=== PATIENT | male | born 1990 | race Caucasian/White ===

== ENCOUNTER 2019-04-30 17:57 | Emergency (ER) | payer BC ==
[~2019-04-30] VITALS: Ht 177.8 cm; Wt 47.6 kg
[2019-04-30 18:12] VITALS: BP 115/64
[2019-04-30] MEDS ORDERED: IBUPROFEN 400 MG TAB PO ONE (18:25)
[2019-04-30] MEDS ORDERED: ACETAMINOPHEN EXTRA STRENGTH 500 MG TAB PO ONE (18:25)
[2019-04-30] MEDS ORDERED: NACL 0.9% 1,000 ML IV ONE (18:30)
[2019-04-30] MEDS ORDERED: ACETAMINOPHEN EXTRA STRENGTH 500 MG TAB ONE (18:34)
[2019-04-30] MEDS ORDERED: IBUPROFEN 400 MG TAB ONE (18:34)
[2019-04-30] MEDS ORDERED: AMPICILLIN/SULBACTAM 3 GM in NACL 0.9% 100 ML IV ONE (20:40)
[2019-04-30] MEDS ORDERED: AMPICILLIN/SULBACTAM 3 GM VIAL ONE (21:01)
[2019-04-30 22:23] VITALS: BP 102/57
== END 2019-04-30 22:23 | disposition home or self-care (01) ==
LOC: MED 17:57
DX: J02.9 Acute pharyngitis, unspecified (principal); R11.0 Nausea
CPT/HCPCS: 86308; 87081; 96365; 99283; J0295; J7030

== ENCOUNTER 2019-10-19 18:25 | Inpatient (IN) | payer BC ==
[~2019-10-19] VITALS: Ht 177.8 cm; Wt 45.8 kg
[2019-10-19 18:47] VITALS: BP 113/68
--- NOTE | 2019-10-19 20:19 | NUR ---
PT AMBUALTED TO BED #6
--- NOTE | 2019-10-19 20:51 | NUR ---
28 Y/O MALE C/O ABD PAIN AND NAUSEA X 2 DAYS, WORSENING TODAY. PT STATES HE WAS ABLE TO EAT LUNCH, AND THEN SUDDEN SHARP 10/10 PAIN TO ABD. DENIES VOMITING/DIARRHEA. ABD SOFT, FLAT, NONTENDER TO TOUCH. BOWEL SOUNDS PRESENT. RR EVEN AND UNLABORED. PT POSITIONED IN BED FOR COMFORT. X 1 SIDE RAIL RAISED. VSS. MEDHX: DENIES ALLERGIES: NKA
--- NOTE | 2019-10-19 21:46 | NUR ---
DR HARE AT BEDSIDE EXAMINING PT.
--- NOTE | 2019-10-19 21:57 | NUR ---
LAB AT BEDSIDE
[2019-10-19 22:08] LABS: EOSINOPHILS # (AUTO) 0.1 K/uL (0-0.4); LYMPHOCYTES # (AUTO) 1.9 K/uL (2.0-11.5); MONOCYTES # (AUTO) 0.5 K/uL (0.8-1.0); NEUTROPHILS # (AUTO) 2.9 K/uL (1.8-7.7)
--- NOTE | 2019-10-19 22:08 | NUR ---
PT LAYING IN BED WITH EYES CLOSED, VISIBLE RISE AND FALL OF THE CHEST. RR EVEN AND UNLABORED. AROUSABLE NAME. VSS. WILL CONTINUE TO MONITOR.
[2019-10-19 22:13] LABS: BASOPHILS % (AUTO) 0.9 % (0.0-2.0); EOSINOPHILS % (AUTO) 2.6 % (0.0-4.0); HEMATOCRIT 38.9 % (36-52); HEMOGLOBIN 12.8 g/dL (12.0-18.0); LYMPHOCYTES % (AUTO) 34.3 % (20.5-51.1); MEAN CORPUSCULAR HEMOGLOBIN 29 pg (27-31); MEAN CORPUSCULAR HGB CONC 33 g/dL (33-37); MEAN CORPUSCULAR VOLUME 89.2 fL (80-94); MONOCYTES % (AUTO) 9.2 % (1.7-9.3); PLATELET COUNT (AUTO) 152 K/uL (140-450); RED BLOOD CELL COUNT(AUTO) 4.37 MIL/uL (4.20-6.10); RED CELL DISTRIBUTION WIDTH 13.4 % (11.6-13.7); WHITE BLOOD COUNT (AUTO) 5.5 K/uL (4.8-10.8)
[2019-10-19 22:32] LABS: ALBUMIN 3.6 g/dL (3.4-5.0); ANION GAP 14.2 (8-16); CARBON DIOXIDE 26.4 mmol/L (21-32); CREATININE 0.8 mg/dL (0.7-1.3); POTASSIUM 3.6 mmol/L (3.5-5.1); TOTAL BILIRUBIN 2.3 mg/dL (0.0-1.0)
--- NOTE | 2019-10-19 23:32 | NUR ---
PT TO CT VIA WHEELCHAIR.
--- NOTE | 2019-10-20 00:34 | NUR ---
PT RECEIVED FOOD PER REQUEST. SITTING UPRIGHT CALM AND PLEASANT. VSS. WILL CONTINUE TO MONITOR
[2019-10-20] MEDS ORDERED: PIPERACILLIN/TAZOBACTAM 3.375 GM in DEXTROSE 5% 50 ML IV ONE (01:20)
--- NOTE | 2019-10-20 01:22 | NUR ---
ULTRASOUND AT BEDSIDE
[2019-10-20] MEDS ORDERED: DEXT 5% / NACL 0.45% 1,000 ML IV SCH ×2 (01:30→01:50)
[2019-10-20] MEDS ORDERED: PIPERACILLIN/TAZOBACTAM 3.375 GM VIAL IV ONE (01:48)
[2019-10-20] MEDS ORDERED: ONDANSETRON 4 MG/2 ML VIAL IVP PRN ×2 (01:50→12:00)
[2019-10-20] MEDS ORDERED: HYDROmorphone PFS 2 MG/ML SYR IVP PRN ×2 (01:50→12:00)
[2019-10-20] MEDS ORDERED: AMPICILLIN/SULBACTAM 3 GM in NACL 0.9% 100 ML IV SCH (02:00)
[2019-10-20 02:30] VITALS: BP 98/53
--- NOTE | 2019-10-20 02:30 | NUR ---
RECEIVED FROM ER PER NAVJOT AWAKE AND ALERT. NO SOB. DENIES PAIN AT THIS TIME. CARE PLANS FOR THE NIGHT DISCUSSED WITH HIM AND CALL LIGHT USE EXPLAINED. ABLE TO VERBALIZE WELL IN [place]. IVF SITE TO LAC #29 INFUSING WELL WITH ZOSYN IVP. AFEBRILE. REMINDED ORDER OF MD NPO EXCEPT MEDICATIONS. ROM X 4. SKIN INTACT. CTAB.
--- NOTE | 2019-10-20 02:35 | NUR ---
Patient will be admitted to care of DR ROSS. Admited to MED SURGE. Will go to room 111A. Belongings list completed. Report given to KIARA ROSALES .
[2019-10-20] MEDS ORDERED: AMPICILLIN/SULBACTAM 3 GM VIAL ONE (03:48)
--- NOTE | 2019-10-20 06:04 | NUR ---
PT. WANTS PNA VACCINE. AFEBRILE. SLEPT WELL THIS SHIFT. NO PAIN COMPLAINTS. PT. AFEBRILE. A/O X 4. ROM X 4. CLEAR SPEECH;. ABLE TO VERBALIZE SIMPLE NEEDS WELL.
[2019-10-20 07:11] LABS: HEMATOCRIT 38.3 % (36-52); HEMOGLOBIN 12.3 g/dL (12.0-18.0); MEAN CORPUSCULAR HEMOGLOBIN 29 pg (27-31); MEAN CORPUSCULAR HGB CONC 32 g/dL (33-37); MEAN CORPUSCULAR VOLUME 89.2 fL (80-94); PLATELET COUNT (AUTO) 150 K/uL (140-450); RED BLOOD CELL COUNT(AUTO) 4.29 MIL/uL (4.20-6.10); RED CELL DISTRIBUTION WIDTH 13.6 % (11.6-13.7); WHITE BLOOD COUNT (AUTO) 4.5 K/uL (4.8-10.8)
[2019-10-20 07:50] LABS: ALBUMIN 3.3 g/dL (3.4-5.0); ANION GAP 11.2 (8-16); CARBON DIOXIDE 28.4 mmol/L (21-32); CREATININE 0.9 mg/dL (0.7-1.3); POTASSIUM 3.6 mmol/L (3.5-5.1); TOTAL BILIRUBIN 1.8 mg/dL (0.0-1.0)
[2019-10-20 08:00] VITALS: BP 108/66
[2019-10-20 08:32] LABS: EOSINOPHILS % (MANUAL) 2 % (0-4); LYMPHOCYTES % (MANUAL) 38 % (20-46); MONOCYTES % (MANUAL) 10 % (5-12)
--- NOTE | 2019-10-20 08:52 | NUR ---
PATIENT HAS BEEN SCREENED AND CATEGORIZED MODERATE NUTRITION RISK. PATIENT WILL BE SEEN WITHIN 3-5 DAYS OF ADMISSION. 10/22/19 10/24/[address]
[2019-10-20] MEDS ORDERED: PNEUMOCOCCAL VACCINE 23 MCG/0.5 ML VIAL IMVAC SCH (09:00)
--- NOTE | 2019-10-20 10:18 | NUR ---
DR VANDANA VARELA MD TALKED TO DR. DAVILA FOR THE CONSULT, I PAGED DR. VERA FOR CONSULT, MD WILL CALL ME BACK.
--- NOTE | 2019-10-20 11:20 | NUR ---
Amend today's note due to patient already discharged, date misinformation. Patient is awaiting lunch, and I did inform him he is still NPO due to having Hida Scan procedure later today approximately 3 to 4 PM. Patient verbally acknowledges information received. Joo Goldman RN
--- NOTE | 2019-10-20 11:30 | NUR ---
Patient is NPO due to having a Hida Scan later this day, he is on full liquid diet, however will hold till after procedure is complete. Explained to patient why he is not able to eat lunch. Joo Goldman RN
[2019-10-20 13:42] LABS: POTASSIUM 3.4 mmol/L (3.5-5.1)
[2019-10-20 13:43] LABS: ANION GAP 11.8 (8-16); CARBON DIOXIDE 26.6 mmol/L (21-32); CREATININE 0.8 mg/dL (0.7-1.3)
[2019-10-20 13:50] LABS: ALBUMIN 3.2 g/dL (3.4-5.0)
--- NOTE | 2019-10-20 14:14 | NUR ---
DC PLANNING 28 YRS OLD WAS ADMITTED FROM HOME WITH A DX OF ACUTE CHOLECYSTITIS, PT HAS A HX OF HIV, PT HAS ABNORMAL LIVER FUNCTION TEST HEPATITIS SUSPECTED. HEP PANEL ORDERED. ULTRASOUND AND CT ABD SHOWED MILD GALL BLADDER WALL THICKENING. ADMINISTERED IVF, ZOSYN AND AMPICILLIN. CONSULT WITH ID DR TA FOR HEPATITIS ,GI AND SURGEON DR DAVILA, AND DR VERA FOR CHOLECYSTITIS. RECEIVED A CALL FROM ALENA [facility] STATED PT NEEDS TO BE TRANSFERRED TO THE CONTRACTED FACILITY WHICH IS [facility] AND TO LET DAGMAR ROSS. TEXT DR VANDANA CARVAJAL'S REQUEST WAITING FOR THE RESPONSE Addendum: 10/20/19 at 1544 by Nay Brooke CM dc planning SPOKE WITH PT AND PT'S FAMILY 'S CONCERN THAT THEY DON'T WANT TO GO TO [facility] , NOTIFED NOEMY AT [facility] PER ALENA THE [facility] PT SIGNED FOR [facility] AND CAN NOT GO TO [facility] .EXPLAINED TO THE PT BECAUSE OF INSURANCE PURPOSE HAS TO GO TO [place]. PT AND FAMILY MEMBER AGREED . PT IS GOING TO ROOM 438 AND # TO GIVE REPORT [phone] AND WILL CALL BACK FOR THE TRANSPORT AUTHORIZATION Addendum: 10/20/19 at 1608 by Nay Brooke CM DC PLANNING RECEIVED A CALL FROM ALENA DIALLO AT [facility] PROVIDED AUTH FOR TRANSPORT FOR [facility] [id number] ARRANGED WITH [facility] TIME 1800 NOTIFIED JEFRY ROSALES
[2019-10-20 15:21] VITALS: BP 96/54
--- NOTE | 2019-10-20 16:40 | NUR ---
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 NUCLEAR MED TECH NOTIFIED. RANJITH ASSIGNED MADE AWARE.
--- NOTE | 2019-10-20 18:30 | NUR ---
Patient being discharged to another facility, [facility], and report called to RN receiving patient, [facility] picking up patient and endorsed report. Gave patient discharge instructions regarding meds, to continue NPO until Hida Scan is done. Went over belongings with patient. Patient gives verbal acknowledgement of understanding information received. Ifeoma Goldman RN
--- NOTE | 2019-10-21 08:00 | NUR ---
Patient resting in bed awake and alert, oriented x 4. Patient is not co abd pain currently. He is resting quietly, and is NPO due to abdominal pain, and having pending procedure Hida Scan to be done. Joo Goldman RN Addendum: 10/21/19 at 2001 by Agency 05 BOBBY ROSALES addendum the above charting was for 10/20/2019
[2019-10-21 09:06] LABS: ANTI-NUCLEAR ANTIBODY,DIRECT Negative (Negative); HEPATITIS A ANTIBODY IGM Negative (Negative); HEPATITIS B CORE AB TOTAL Negative (Negative); HEPATITIS B SURFACE ANTIBODY Reactive (.); HEPATITIS B SURFACE ANTIGEN Negative (Negative)
--- NOTE | 2019-10-21 11:57 | NUR ---
Late entry. Confirmed with RN that Zosyn was begun at 0200 and ended at 0230.
[2019-10-22 15:07] LABS: ACTIN(SMOOTH MUSCLE) AB 19 Units (0-19); ANTI-NUCLEAR ANTIBODY TITER Negative (.)
== END 2019-10-20 18:30 | disposition short-term general hospital (02) | DRG 442 ==
LOC: MED 18:25 → MTU 10-20 01:33
PROVIDERS: ADMIT Internal Medicine Pulmonary Disease; ATTEND Internal Medicine Pulmonary Disease
DX: B17.9 Acute viral hepatitis, unspecified (principal); K80.00 Calculus of gallbladder with acute cholecystitis without obstruction
CPT/HCPCS: 36415; 76705; 80053; 82150; 82550; 83516; 83690; 85025; 86038; 86308; 86644; 86704; 86706; 86708; 86709; 86803; 87081; 87340; 99285; J0295; J2543; J7060; Q0092

== ENCOUNTER 2020-06-01 10:48 | Emergency (ER) | payer BC, MEDICAID ==
[~2020-06-01] VITALS: Ht 175.3 cm; Wt 44.9 kg
[2020-06-01 10:51] VITALS: BP 123/55
--- NOTE | 2020-06-01 10:57 | NUR ---
Patient ambulated to bed 11. RN evaluating the patient at bedside.
--- NOTE | 2020-06-01 11:20 | NUR ---
29 YEAR OLD MALE COMPLAINS OF NAUSEA AND VOMITTING X 2 DAYS. PT DENIES ANY PAIN IN ABDOMEN, OR BLOOD IN STOOL NOTICED. PT STATES RIGHT AFTER EATING HE WOULD FEEL LIKE HE WOULD HAVE DIARRHEA SHORTLY AFTER. PT ALSO COMPLAINS OF BODY ACHES X 2 DAYS. PT AOX4, BREATHING EVEN AND UNLABORED, SKIN WARM AND DRY. BED IN LOWEST POSITION, LOCKED, BED RAIL UPX1. PMH - HIV, LIVER INFLAMMATION ALLERGIES - NKA
[2020-06-01] MEDS ORDERED: NACL 0.9% 500 ML IV SCH (11:33)
--- NOTE | 2020-06-01 11:55 | NUR ---
XRAY AT BEDSIDE
[2020-06-01 12:00] LABS: BASOPHILS % (AUTO) 0.6 % (0.0-2.0); HEMATOCRIT 45.3 % (36-52); LYMPHOCYTES # (AUTO) 1.7 K/uL (2.0-11.5); LYMPHOCYTES % (AUTO) 26.6 % (20.5-51.1); MEAN CORPUSCULAR HEMOGLOBIN 29 pg (27-31); MEAN CORPUSCULAR HGB CONC 33 g/dL (33-37); MEAN CORPUSCULAR VOLUME 86.8 fL (80-94); MONOCYTES # (AUTO) 0.9 K/uL (0.8-1.0); MONOCYTES % (AUTO) 14.2 % (1.7-9.3); NEUTROPHILS # (AUTO) 3.8 K/uL (1.8-7.7); NEUTROPHILS % (AUTO) 58.6 % (42.2-75.2); PLATELET COUNT (AUTO) 167 K/uL (140-450); RED BLOOD CELL COUNT(AUTO) 5.23 MIL/uL (4.20-6.10); RED CELL DISTRIBUTION WIDTH 13.5 % (11.6-13.7); WHITE BLOOD COUNT (AUTO) 6.6 K/uL (4.8-10.8)
[2020-06-01 12:10] LABS: APPEARANCE,URINE CLEAR (CLEAR); BILIRUBIN,URINE 1+ (NEGATIVE); BLOOD, URINE 3+ (NEGATIVE); COLOR,URINE YELLOW (YELLOW); LEUKOCYTE ESTERASE ,URINE NEGATIVE (NEGATIVE); NITRITE, URINE NEGATIVE (NEGATIVE); UGLUCOSE NEGATIVE (NEGATIVE)
[2020-06-01 12:13] LABS: ALBUMIN 3.7 g/dL (3.4-5.0); ANION GAP 9.2 (8-16); CARBON DIOXIDE 31.1 mmol/L (21-32); POTASSIUM 3.3 mmol/L (3.5-5.1); TOTAL BILIRUBIN 0.9 mg/dL (0.0-1.0)
--- NOTE | 2020-06-01 12:13 | NUR ---
PT ALERT AND AWAKE, BREATHING EVEN AND UNLABORED. NO DISTRESS NOTED. PT ON MONITOR, VS STABLE
[2020-06-01 12:22] LABS: RBC,URINE 20-50 /HPF (0-5); WBC,URINE 0-5 /HPF (0-5)
--- NOTE | 2020-06-01 12:41 | NUR ---
Patient taken to CT scan via wheelchair by tech.
--- NOTE | 2020-06-01 13:30 | NUR ---
Patient discharged with v/s stable. Written and verbal after care instructions about viral gastroenteritis given and explained. Patient alert, oriented and verbalized understanding of instructions. Ambulatory with steady gait. All questions addressed prior to discharge. ID band removed. Patient advised to follow up with PMD. Rx of bactrim and lomotil given. Patient educated on indication of medication including possible reaction and side effects. Opportunity to ask questions provided and answered.
[2020-06-01 13:31] VITALS: BP 103/68
== END 2020-06-01 13:30 | disposition home or self-care (01) ==
LOC: MED 10:48
DX: K52.89 Other specified noninfective gastroenteritis and colitis (principal); R19.7 Diarrhea, unspecified; K76.89 Other specified diseases of liver
CPT/HCPCS: 36415; 71045; 74176; 80053; 81001; 83605; 85025; 85610; 85730; 87040; 93005; 96360; 99285; J7030; Q0092

== ENCOUNTER 2020-09-06 22:34 | Emergency (ER) | payer MEDICAID, OTHER ==
[~2020-09-06] VITALS: Ht 177.8 cm; Wt 48.1 kg
[2020-09-06 22:40] VITALS: BP 109/68
--- NOTE | 2020-09-06 22:40 | NUR ---
TO TENT # 04 AMBULATORY
--- NOTE | 2020-09-06 23:45 | NUR ---
SEEN AND EXAMINED BY LEONARDO WITH ORDERS AND CARRIED OUT
[2020-09-06] MEDS ORDERED: KETOROLAC 30 MG/ML VIAL IVP ONE (23:50)
--- NOTE | 2020-09-07 00:27 | NUR ---
EKG PERFORMED IN TENT. PT COVERED WITH SCREEN AND BLANKET. EKG READS SINUS RHYTHM @ 59
[2020-09-07 01:07] LABS: BASOPHILS # (AUTO) 0.1 K/uL (0.00-0.22); EOSINOPHILS # (AUTO) 0.1 K/uL (0-0.4); EOSINOPHILS % (AUTO) 1.4 % (0.0-4.0); HEMATOCRIT 44.3 % (36-52); HEMOGLOBIN 14.5 g/dL (12.0-18.0); LYMPHOCYTES # (AUTO) 2.4 K/uL (2.0-11.5); LYMPHOCYTES % (AUTO) 46.8 % (20.5-51.1); MEAN CORPUSCULAR HEMOGLOBIN 28 pg (27-31); MEAN CORPUSCULAR HGB CONC 33 g/dL (33-37); MEAN CORPUSCULAR VOLUME 86.4 fL (80-94); MONOCYTES # (AUTO) 0.7 K/uL (0.8-1.0); MONOCYTES % (AUTO) 12.9 % (1.7-9.3); NEUTROPHILS % (AUTO) 37.9 % (42.2-75.2); PLATELET COUNT (AUTO) 229 K/uL (140-450); RED BLOOD CELL COUNT(AUTO) 5.13 MIL/uL (4.20-6.10); RED CELL DISTRIBUTION WIDTH 13.3 % (11.6-13.7); WHITE BLOOD COUNT (AUTO) 5.2 K/uL (4.8-10.8)
[2020-09-07 01:15] LABS: ALBUMIN 3.9 g/dL (3.4-5.0); ANION GAP 8.1 (8-16); CARBON DIOXIDE 31.8 mmol/L (21-32); CREATININE 0.9 mg/dL (0.6-1.3); POTASSIUM 3.9 mmol/L (3.5-5.1); TOTAL BILIRUBIN 0.4 mg/dL (0.0-1.0)
[2020-09-07] MEDS ORDERED: KETOROLAC 30 MG/ML VIAL IM ONE (01:45)
--- NOTE | 2020-09-07 01:45 | NUR ---
MEDICATED PER ERMDS ORDER, TOLERTED WELL.
--- NOTE | 2020-09-07 02:40 | NUR ---
ALL RESULTS BACK AND NOTED BY ERMD AND FOR D/C
[2020-09-07 03:00] VITALS: BP 111/72
--- NOTE | 2020-09-07 03:00 | NUR ---
Patient discharged with v/s stable. Written and verbal after care instructions given and explained. Patient verbalized understanding. Ambulatory with steady gait. All questions addressed prior to discharge. Advised to follow up with PMD.
== END 2020-09-07 03:00 | disposition home or self-care (01) ==
LOC: MED 22:34
DX: R07.89 Other chest pain (principal); R06.02 Shortness of breath
CPT/HCPCS: 36415; 71045; 80053; 84484; 85025; 86360; 93005; 96372; 99285; J1885